=== PATIENT | female | born 1970 | race African-American/Black ===

== ENCOUNTER → 2017-04-24 | Outpatient (CLI) | payer BC ==
[~2017-04-24] MED LIST: CYCL10TA2 PO; FENT1PAT77 TD; HYDR-925 PO
--- NOTE | 2017-04-24 16:03 | DIREP ---
PROCEDURE:XR ABDOMEN 2 VIEWS COMPARISON:[facility], CR, XRAY ABDOMEN 2VW, 07/05/2016, 04:00 PM. INDICATIONS:NAUSEA/VOMITING TECHNIQUE:Flat and upright views of the abdomen are provided. FINDINGS: BOWEL GAS PATTERN:Mild scattered stool within the colon. Mild gas within the rectum. No dilated loops of small bowel. CALCIFICATIONS:Presumed phleboliths within the pelvis. LUNG BASES:Clear. BONES:Degenerative changes of the spine. These are most prominent within the lower lumbar spine. Mild degenerative changes of the hips. OTHER:No additional findings. CONCLUSION: 1. Nonspecific nonobstructive bowel gas pattern. Relatively mild fecal burden. 2. Presumed phleboliths within the pelvis. Dictated by: Clarence Morris M.D. On 04/24/2017 at 04:01 PM
== END | disposition home or self-care (01) ==
LOC: RAD 13:55
PROVIDERS: ATTEND Internal Medicine
DX: R11.2 Nausea with vomiting, unspecified (principal); I87.8 Other specified disorders of veins
CPT/HCPCS: 74020

== ENCOUNTER → 2018-03-24 | Outpatient (CLI) | payer BC ==
--- NOTE | 2018-03-24 14:47 | DIREP ---
PROCEDURE:XRAY KNEE 2 VWS-RT COMPARISON:[facility], , KNEE RIGHT 3 VIEW WITH STANDING, 06/08/2014, 09:58 AM. INDICATIONS:RIGHT KNEE PAIN FINDINGS: BONES:Calcification at the quadriceps and patellar tendinous insertions. JOINTS:Mild right medial femorotibial joint space narrowing. Mild spurring of the tibial spines and posterior patella. Moderate amount of fluid in the suprapatellar recess. SOFT TISSUES:Normal. OTHER:No additional findings. CONCLUSION:Mild degenerative changes and joint effusion. No acute bony abnormality. Dictated by: Rosey Irvin MD on 03/24/2018 at 02:44 PM
== END | disposition home or self-care (01) ==
LOC: RAD 14:18
PROVIDERS: ATTEND Internal Medicine
DX: M17.11 Unilateral primary osteoarthritis, right knee (principal)
CPT/HCPCS: 73560